=== PATIENT | female | born 1940 | race Caucasian/White ===

== ENCOUNTER 2021-12-28 12:25 | Emergency (ER) | payer MEDICARE, SELFPAY ==
[2021-12-28 12:35] VITALS: BP 115/77; PULSE 99; RESP 24; TEMP 37.8; O2SAT 90; BMI 27.3
[2021-12-28 13:12] VITALS: PULSE 99; O2SAT 92
--- NOTE | 2021-12-28 13:26 | CRLHL7_ITS ---
For Patients: As a result of the Century Cures Act, medical imaging exams and procedure reports are released immediately into your electronic medical record. You may view this report before your referring provider. If you have questions, please contact your health care provider. Indication: Cough and shortness of breath Comparison: Single-view chest October 30, 2020 Technique: Single AP view chest Findings: There is hyperinflation and chronic interstitial change. There is mildly increased interstitial markings likely representing minimal pulmonary vascular congestion and/or central bronchial thickening. There is no dense consolidation, effusion or pneumothorax. The cardiomediastinal silhouette is within normal limits. The bony thorax is grossly intact. Impression: Hyperinflation and chronic interstitial changes with mild interstitial prominence which may represent superimposed pulmonary vascular congestion and/or mild bronchitis changes. No dense consolidation is appreciated. Dictated by Pedro Quintana MD @ 12/28/2021 2:54:47 PM (Electronically Signed)
--- NOTE | 2021-12-28 13:28 | ED_ITS ---
HPI - General Adult General Chief complaint: Weakness Stated complaint: Fall, struggling to breathe Time Seen by Provider: 12/28/21 12:38 History of Present Illness HPI narrative: This 81-year-old female comes in with a family member because of weakness, cough, and shortness of breath. 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 She is worse in these symptoms over the past 3 or 4 days. She lives at home with her 2 sons. They are gone through most of the day. Today the son 's yelena was there when the patient fell at the end of the bed. She does not report any injury from the fall but was unable to get up. With help she did get up and is able to ambulate. She arrives with a temperature at 100.1?, pulse at 99, and O2 sats at 90-92% on room air. Her son states that he feels that she would be better off in some kind of assisted living or other care facility. He states that she does not want to go elsewhere but things are becoming difficult at home for others around her and caring for her. Related Data Home Medications Medication Instructions Recorded Confirmed levothyroxine 50 mcg capsule 50 mcg PO QDAY 11/01/21 sodium chloride 1 gram tablet 1,000 mg PO BID 11/01/21 Previous Rx's Medication Instructions Recorded amlodipine 5 mg tablet 5 mg PO QDAY #90 tabs 11/02/21 furosemide 20 mg tablet 20 mg PO BID #180 tabs 11/02/21 acetaminophen 300 mg-codeine 30 mg 1 tab PO Q6H PRN pain #14 tabs 12/28/21 tablet Allergies Allergy/AdvReac Type Severity Reaction Status Date / Time No Known Drug Allergies Allergy Verified 12/28/21 12:34 Review of Systems Status of ROS: Reports: 10 or more systems reviewed and unremarkable except as noted in History and below Narrative: Constitutional: No fevers, no weight gain or loss. Eyes: No discharge. No vision changes. HENT: No congestion, no sore throat, no ear pain. Cardiovascular: No chest pain, no palpitations. Respiratory: She reports cough and some shortness of breath. Gastrointestinal: No abdominal pain, no vomiting, no diarrhea. Genitourinary: No dysuria, no hematuria. Musculoskeletal: Normal range of motion. Skin: No rashes, no pruritis. Neurological: No dizziness,, sensory change, speech change. She has generalized weakness. Endo/Heme/Allergies: No bruising or bleeding. No polydipsia. Pysch: no suicidality, no anxiety, no insomnia. All other systems reviewed and are negative. [facility] Social History Smoking Status: Former smoker What tobacco products do you use: cigarettes Years smoked: 50 Do you use any of these nicotine containing products: None Second hand tobacco smoke exposure: Yes How often do you have a drink containing alcohol: never How often do you have six or more drinks on one occasion: Never AUDIT-C Alcohol total score: 0 Non-prescribed substance use: denies use service: No Exam Narrative: Exam Narrative: Constitutional: Well-developed, well-nourished, no acute distress. HEENT: Normocephalic, atraumatic. Neck: Normal range of motion. Nontender. Supple. Heart: Regular. No murmurs. Borderline tachycardia. Intact distal pulses. Lungs: Clear to auscultation. No chest discomfort. No wheezes, rhonchi, or rales. Abdomen: Normal bowel sounds. Nontender. No rebound tenderness. Genitalia: Deferred. Back: No midline tenderness. Normal range of motion. Extremities: Normal range of motion. No injury. Skin: Intact. No rash. Warm. No erythema or pallor. Neurologic: No altered sensation. No weakness. Alert and oriented. She has difficulty raising each leg from the bed. She does have chronic hip pain. Psychiatric: No suicidality. No anxiety or depression. No insomnia. Nursing notes and vitals signs are reviewed. Const: Vital Signs, click to edit/add: Vital Signs - 24 hr 12/28/21 12:35 12/28/21 13:12 12/28/21 13:50 Temperature 100.1 F H 99.7 F H Pulse Rate [Apical ] 99 99 100 Respiratory Rate 24 Blood Pressure [Ri ght Upper Arm] 115/77 Pulse Oximetry 90 92 93 Oxygen Delivery Me thod Room Air Room Air Room Air 12/28/21 14:34 Temperature Pulse Rate [Apical ] 95 Respiratory Rate Blood Pressure [Ri ght Upper Arm] Pulse Oximetry 91 Oxygen Delivery Me thod Room Air Course Vital Signs Vital signs: Initial Vital Signs Temperature 100.1 F H 12/28/21 12:35 Temperature Source Temporal Artery Scan 12/28/21 12:35 Pulse Rate 99 12/28/21 12:35 Pulse Rhythm 12/28/21 12:35 Respiratory Rate 24 12/28/21 12:35 Blood Pressure 115/77 12/28/21 12:35 Blood Pressure Mean 89 12/28/21 12:35 Blood Pressure Position Supine 12/28/21 12:35 Pulse Oximetry 90 12/28/21 12:35 Oxygen Delivery Method 12/28/21 12:35 Vital Signs Temperature 100.1 F H 12/28/21 12:35 Pulse Rate 99 12/28/21 12:35 Respiratory Rate 24 12/28/21 12:35 Blood Pressure 115/77 12/28/21 12:35 Pulse Oximetry 90 12/28/21 12:35 Oxygen Delivery Method 12/28/21 12:35 Temperature 99.7 F H 12/28/21 13:50 Pulse Rate 95 12/28/21 14:34 Respiratory Rate 24 12/28/21 12:35 Blood Pressure 115/77 12/28/21 12:35 Pulse Oximetry 91 12/28/21 14:34 Oxygen Delivery Method 12/28/21 14:34 Medical Decision Making MDM Narrative Medical decision making narrative: This patient comes in with cough and arrives with a temperature of 100.1? F. Recheck of the temperature without any antipyretics returned at 99.7. An IV was established and labs were drawn. Her lactate level is in normal range. Blood cultures are acquired with results pending. Her COVID and influenza tests returned negative. Her chest x-ray also shows no sign of infiltrate. Her white count is slightly elevated. More likely this is a viral infection. Throughout her stay here she is maintaining heart rate in the 90s and oximetry in the low 90s%. She does have some background history of mild COPD. Lab results otherwise returned with reassuring findings. This patient is living at home with 2 of her sons. One of the sons is bound in a wheelchair but the other 1 routinely checks up on her. This son stated that things are becoming more difficult in caring for this patient recently. I did state to her that she may need some help at some time. She did miss handle her walker when getting up from the bed and slid to the ground. She did not have any injury but needed help to get up. This patient seems okay to return home at this time. I did describe signs and symptoms that would indicate a need for return and re- evaluation. She did receive an IV dose of Solu-Medrol 125 mg. A prescription for Tylenol 3 is provided for cough suppressant benefit and some pain relief as she states that she has chronic low back pain. Lab Data Labs: Lab Results 12/28/21 12/28/21 12/28/21 Range/Units 12:42 13:40 13:40 WBC 11.95 H (4.50-11.00) K/uL RBC 4.64 (4.00-5.20) m/uL Hgb 13.3 (12.0-16.0) gm/dL Hct 40.0 (33.0-51.0) % MCV 86 (80-100) fL MCH 29 (26-34) pg MCHC 33 (32-36) gm/dL RDW Coeff of Tracy 14.0 (11.5-15.5) % Plt Count 214 (140-440) K/uL Neut % (Auto) 79.5 H (42.0-72.0) % Lymph % (Auto) 10.5 L (20-44) % Harnett % (Auto) 9.1 (0.0-11.0) % Eos % (Auto) 0.3 (0.0-7.0) % Baso % (Auto) 0.3 (0.0-3.0) % Neut # (Auto) 9.50 H (1.7-7.0) K/uL Lymph # (Auto) 1.30 (0.90-2.90) K/uL Harnett # (Auto) 1.10 H (0.00-0.90) K/UL Eos # (Auto) 0.00 (0.00-0.50) K/uL Baso # (Auto) 0.00 (0.00-0.30) K/uL Abs Immat Gran (auto) 0.03 (0.00-0.30) K/uL Sodium 131 L (135-149) mmol/L Potassium 3.8 (3.6-5.1) mmol/L Chloride 96 (96-114) mmol/L Carbon Dioxide 25 (20-32) mmol/L BUN 8 (7-30) mg/dL Creatinine 0.7 (0.5-1.5) mg/dL Estimated Creat Clear 35.49 Estimated GFR 87 ml/min Glucose 108 (60-115) mg/dL Lactate (0.5-1.9) mmol/L Calcium 9.1 (8.4-10.6) mg/dL Troponin I < 0.01 L (0.01-0.04) ng/mL NT-Pro-B Natriuret Pep (0-450) PG/mL TSH (0.270-4.20) uIU/mL SARS-CoV-2 (PCR) Negative SARS-CoV-2 (Negative) Influenza Type A (PCR) Negative PCR FLU A (Negative) Influenza Type B (PCR) Negative PCR FLU B (Negative) 12/28/21 12/28/21 12/28/21 Range/Units 13:40 13:40 13:40 WBC (4.50-11.00) K/uL RBC (4.00-5.20) m/uL Hgb (12.0-16.0) gm/dL Hct (33.0-51.0) % MCV (80-100) fL MCH (26-34) pg MCHC (32-36) gm/dL RDW Coeff of Tracy (11.5-15.5) % Plt Count (140-440) K/uL Neut % (Auto) (42.0-72.0) % Lymph % (Auto) (20-44) % Harnett % (Auto) (0.0-11.0) % Eos % (Auto) (0.0-7.0) % Baso % (Auto) (0.0-3.0) % Neut # (Auto) (1.7-7.0) K/uL Lymph # (Auto) (0.90-2.90) K/uL Harnett # (Auto) (0.00-0.90) K/UL Eos # (Auto) (0.00-0.50) K/uL Baso # (Auto) (0.00-0.30) K/uL Abs Immat Gran (auto) (0.00-0.30) K/uL Sodium (135-149) mmol/L Potassium (3.6-5.1) mmol/L Chloride (96-114) mmol/L Carbon Dioxide (20-32) mmol/L BUN (7-30) mg/dL Creatinine (0.5-1.5) mg/dL Estimated Creat Clear Estimated GFR ml/min Glucose (60-115) mg/dL Lactate 1.2 (0.5-1.9) mmol/L Calcium (8.4-10.6) mg/dL Troponin I (0.01-0.04) ng/mL NT-Pro-B Natriuret Pep 330 (0-450) PG/mL TSH 0.553 (0.270-4.20) uIU/mL SARS-CoV-2 (PCR) (Negative) Influenza Type A (PCR) (Negative) Influenza Type B (PCR) (Negative) Imaging Data Chest x-ray: Radiologist's impression: There is hyperinflation and chronic interstitial change. There is mildly increased interstitial markings likely representing minimal pulmonary vascular congestion and/or central bronchial thickening. There is no dense consolidation, effusion or pneumothorax. The cardiomediastinal silhouette is within normal limits. The bony thorax is grossly intact. Impression: Hyperinflation and chronic interstitial changes with mild interstitial prominence which may represent superimposed pulmonary vascular congestion and/or mild bronchitis changes. No dense consolidation is appreciated. ECG Data Attestation: I personally reviewed and interpreted this ECG as follows: Interpretation: Sinus tachycardia. Rate is 103 beats per minute. There are no ST or T-wave ab normalities. Discharge Plan Discharge Clinical Impression: Acute upper respiratory infection Patient Disposition: Home w/ Parent or Adult Condition: Unchanged Additional Instructions: Take medication as needed and indicated. Follow up with MD or return if worsening symptoms happen. Prescriptions: New acetaminophen-codeine 300-30 mg tablet 1 tab PO Q6H PRN (Reason: pain) Qty: 14 0RF No Action levothyroxine 50 mcg capsule 50 mcg PO QDAY sodium chloride 1 gram tablet 1,000 mg PO BID furosemide 20 mg tablet 20 mg PO BID Qty: 180 1RF amlodipine 5 mg tablet 5 mg PO QDAY Qty: 90 1RF Follow Up/Referrals: Dom Loera MD [Primary Care Provider] - Stand Alone Forms: [facility] Info Instructions
[2021-12-28 13:41] LABS: PCR FLU A Negative PCR FLU A (Negative); PCR FLU B Negative PCR FLU B (Negative)
[2021-12-28 13:42] LABS: SARS PCR* Negative SARS-CoV-2 (Negative)
[2021-12-28 13:50] VITALS: PULSE 100; TEMP 37.6; O2SAT 93
[2021-12-28 13:53] LABS: Lactate* 1.2 mmol/L (0.5-1.9)
[2021-12-28 14:09] LABS: Basophils Percent Auto 0.3 % (0.0-3.0); Eosinophils Percent Auto 0.3 % (0.0-7.0); Hemoglobin* 13.3 gm/dL (12.0-16.0); Immature Granulocytes Abs Auto 0.03 K/uL (0.00-0.30); Lymphocytes Percent Auto 10.5 % (20-44); Mean Corpuscular HGB Conc 33 gm/dL (32-36); Mean Corpuscular Hemoglobin 29 pg (26-34); Mean Corpuscular Volume 86 fL (80-100); Monocytes Percent Auto 9.1 % (0.0-11.0); Neutrophils Percent Auto 79.5 % (42.0-72.0); Platelet Count* 214 K/uL (140-440); Red Blood Count 4.64 m/uL (4.00-5.20); White Blood Count* 11.95 K/uL (4.50-11.00)
[2021-12-28 14:15] LABS: Slide Review Reflex No
[2021-12-28 14:34] VITALS: PULSE 95; O2SAT 91
[2021-12-28 14:54] LABS: NT Pro B Type NatriureticPept* 330 PG/mL (0-450)
[2021-12-28 15:16] LABS: Thyroid Stimulating Hormone* 0.553 uIU/mL (0.270-4.20)
[2021-12-28 15:23] LABS: Chloride* 96 mmol/L (96-114); Potassium* 3.8 mmol/L (3.6-5.1); Sodium* 131 mmol/L (135-149)
[2021-12-28 15:25] LABS: Creatinine* 0.7 mg/dL (0.5-1.5); Est. Creatinine Clearance* 35.49; Estimated Glomerular Filt Rate 87 ml/min
[2021-12-28 15:26] LABS: Blood Urea Nitrogen* 8 mg/dL (7-30); Calcium* 9.1 mg/dL (8.4-10.6); Carbon Dioxide* 25 mmol/L (20-32); Glucose* 108 mg/dL (60-115)
[2021-12-28 15:30] VITALS: PULSE 96; O2SAT 88
[2021-12-28 15:39] LABS: Troponin I* < 0.01 ng/mL (0.01-0.04)
[2021-12-28 16:10] VITALS: BP 105/73
== END 2021-12-28 16:41 | disposition home or self-care (01) ==
PROVIDERS: Emergency Provider Emergency Medicine Emergency Medical Services; PCP Family Medicine
DX: J06.9 Acute upper respiratory infection, unspecified (principal)
CPT/HCPCS: 36415; 71045; 80048; 83605; 83880; 84443; 84484; 85025; 87040; 87631; 93005; 99284; 99285